=== PATIENT | male | born 1980 | race Caucasian/White ===

== ENCOUNTER 2021-06-05 04:37 | Emergency (ER) | payer OTHER ==
[~2021-06-05] VITALS: Ht 175.3 cm; Wt 86.2 kg
--- NOTE | 2021-06-05 04:45 | NUR ---
PT AMBULATED TO ER C/O LT HAND PAIN AND SWELLING X1 DAY.
--- NOTE | 2021-06-05 04:53 | NUR ---
DR. JOHNSON AT BEDSIDE, MSE IN PROGRESS.
[2021-06-05] MEDS ORDERED: METH-817 PO (04:56)
[2021-06-05] MEDS ORDERED: SULFAMETH/TRIMETH 800/160 MG TABLET PO ONE (05:30)
[2021-06-05] MEDS ORDERED: VANCOMYCIN 1G/D5W 200 ML PIGGYBACK IV ONE (05:30)
[2021-06-05] MEDS ORDERED: SULFAMETH/TRIMETH 800/160 MG TABLET ONE (05:47)
[2021-06-05] MEDS ORDERED: VANCOMYCIN IV 200 ML ONE (05:48)
[2021-06-05] MEDS ORDERED: SULF1TAB48 PO (07:05)
--- NOTE | 2021-06-05 07:16 | NUR ---
Patient discharged to home in stable condition. Written and verbal after care instructions given. Patient verbalizes understanding of instructions. Stressed follow up or return to ER for worsening s/s. No SOB or labored breathing, afebrile, denies any pain/discomfort upon discharge. IV removed.
[2021-06-05 07:17] VITALS: BP 144/82
== END 2021-06-05 07:10 | disposition home or self-care (01) ==
LOC: ER 04:53
DX: L03.114 Cellulitis of left upper limb (principal)
CPT/HCPCS: 96365; 99284; J3370; A4663